=== PATIENT | female | born 1965 | race Caucasian/White ===

== ENCOUNTER 2017-05-14 19:08 | Inpatient (IN) | payer MEDICAID ==
[~2017-05-14] VITALS: Ht 172.7 cm; Wt 67.6 kg
[~2017-05-14 19:08] MED LIST: ACYC200C PO; LURA40 PO; OXCA300T PO; TOLT2CAP27 PO
[2017-05-14] MEDS ORDERED: CARB100 PO (19:25)
[2017-05-14] MEDS ORDERED: OLAN2.5T3 PO (19:25)
[2017-05-14] MEDS ORDERED: VENL25TA47 PO (19:25)
[2017-05-14] MEDS ORDERED: ACYC200C PO (19:25)
[2017-05-14 19:57] LABS: BASOPHILS # (AUTO) 0.01 K/uL (0.00-0.20); BASOPHILS % (AUTO) 0.2 % (0.0-2.0); EOSINOPHILS # (AUTO) 0.11 K/uL (0.00-0.70); EOSINOPHILS % (AUTO) 1.45 % (1.0-6.0); HEMATOCRIT 42.6 % (36-46); HEMOGLOBIN 14.3 g/dL (12.0-16.0); LYMPHOCYTES # (AUTO) 1.6 K/uL (1.0-4.8); LYMPHOCYTES % (AUTO) 20.9 % (22.0-44.0); MEAN CORPUSCULAR HEMOGLOBIN 30.8 pg (26.0-34.0); MEAN CORPUSCULAR HGB CONC 33.5 G/dL (31.0-37.0); MEAN CORPUSCULAR VOLUME 92 fL (80-100); MONOCYTES # (AUTO) 0.6 K/uL (0.1-1.0); MONOCYTES % (AUTO) 7.8 % (2.0-9.0); NEUTROPHILS # (AUTO) 5.4 K/uL (1.8-7.7); NEUTROPHILS % (AUTO) 69.7 % (40.0-70.0); PLATELET COUNT (AUTO) 296 K/uL (150-450); RED BLOOD CELL COUNT(AUTO) 4.64 MIL/uL (4.00-5.20); RED CELL DISTRIBUTION WIDTH 13.7 % (11.5-14.5); WHITE BLOOD COUNT (AUTO) 7.7 K/uL (4.5-11.0)
[2017-05-14] MEDS ORDERED: LORazepam 2 MG TABLET PO ONE (20:00)
[2017-05-14 20:09] LABS: ANION GAP 6 mmol/L (8-16); CARBON DIOXIDE 31 mmol/L (22-29); CHLORIDE 103 mmol/L (98-107); CREATININE 1.02 mg/dL (0.60-1.30); GLOMERULAR FILTR. RATE CALC 58 mL/min (>60); POTASSIUM 3.4 mmol/L (3.5-5.1); SODIUM SERUM 140 mmol/L (136-145); UREA NITROGEN, BLOOD 10 mg/dL (7-18)
[2017-05-14 20:14] LABS: ALANINE AMINOTRANSFERASE 44 U/L (12-78); ALBUMIN 3.7 g/dL (3.4-5.0); ASPARTATE AMINOTRANSFERASE 25 U/L (15-37); BILIRUBIN,TOTAL 0.3 mg/dL (0.1-1.0); TOTAL PROTEIN, SERUM 6.1 g/dL (6.4-8.2)
[2017-05-14] MEDS ORDERED: ZOLPIDEM TARTRATE 10 MG TABLET PO PRN (20:30)
[2017-05-14 21:00] LABS: CHOL/HDL RATIO 1.8 (3.9-5.7); THYROID STIMULATING HORMONE 1.61 uIU/mL (0.36-3.74)
[2017-05-14 22:49] VITALS: BP 158/98
[2017-05-15] MEDS: HALOPERIDOL 5 MG TABLET PO PRN (09:08)
[2017-05-15] MEDS: NICOTINE 7 MG/24 HOUR PATCH TD SCH (09:08)
[2017-05-15 09:24] VITALS: BP 119/74
[2017-05-15] MEDS: OXcarbazepine 300 MG TABLET PO SCH (17:58)
[2017-05-15 20:51] VITALS: BP 125/80
[2017-05-15] MEDS: OLANZapine 7.5 MG TABLET PO SCH (21:31)
[2017-05-16 05:43] VITALS: BP 125/69
[2017-05-16 09:00] VITALS: BP 132/88
[2017-05-16] MEDS: OXcarbazepine 300 MG TABLET PO SCH ×2 (09:35→17:46)
[2017-05-16] MEDS: NICOTINE 7 MG/24 HOUR PATCH TD SCH (09:35)
[2017-05-16] MEDS: LORazepam 2 MG TABLET PO PRN (09:48)
[2017-05-16] MEDS ORDERED: POTASSIUM CHLORIDE 10% 40 MEQ/30 ML LIQUID UDCUP PO ONE (16:15)
[2017-05-16 17:12] VITALS: BP 133/84
[2017-05-16] MEDS: OLANZapine 7.5 MG TABLET PO SCH (21:07)
[2017-05-17] MEDS: OXcarbazepine 300 MG TABLET PO SCH ×2 (09:42→17:05)
[2017-05-17] MEDS: NICOTINE 7 MG/24 HOUR PATCH TD SCH (09:44)
[2017-05-17 09:53] VITALS: BP 108/56
[2017-05-17] MEDS: HALOPERIDOL 5 MG TABLET PO PRN (12:45)
[2017-05-17 16:15] VITALS: BP 113/71
[2017-05-17] MEDS: OLANZapine 7.5 MG TABLET PO SCH (20:18)
[2017-05-18] MEDS: NICOTINE 7 MG/24 HOUR PATCH TD SCH (09:00)
[2017-05-18 09:11] VITALS: BP 110/78
[2017-05-18] MEDS: OXcarbazepine 300 MG TABLET PO SCH ×2 (10:03→17:03)
[2017-05-18 16:47] VITALS: BP 130/63
[2017-05-18] MEDS: LORazepam 2 MG TABLET PO PRN (19:03)
[2017-05-18] MEDS: OLANZapine 7.5 MG TABLET PO SCH (20:24)
[2017-05-19] MEDS: NICOTINE 7 MG/24 HOUR PATCH TD SCH (09:00)
[2017-05-19] MEDS: OXcarbazepine 300 MG TABLET PO SCH (09:05)
[2017-05-19 09:30] VITALS: BP 116/61
== END 2017-05-19 13:24 | disposition home or self-care (01) | DRG 753 ==
LOC: EMS 19:10 → 3EI 21:56
PROVIDERS: ADMIT Psychiatry & Neurology Psychiatry; ATTEND Psychiatry & Neurology Psychiatry
DX: F31.9 Bipolar disorder, unspecified (principal); E78.5 Hyperlipidemia, unspecified; E87.6 Hypokalemia; F41.9 Anxiety disorder, unspecified; F99 Mental disorder, not otherwise specified; R32 Unspecified urinary incontinence; Z98.51 Tubal ligation status
CPT/HCPCS: 84132; 84443; 99285; G0480

== ENCOUNTER 2017-07-22 18:07 | Emergency (ER) | payer MEDICAID ==
[~2017-07-22] VITALS: Ht 175.3 cm; Wt 50.0 kg
[~2017-07-22 18:07] MED LIST changes: -ACYC200C PO; -LURA40 PO; +OLAN2.5T3 PO; -TOLT2CAP27 PO
[2017-07-22 18:40] VITALS: BP 199/120
== END 2017-07-22 19:00 | disposition left against medical advice (07) ==
LOC: EMS 18:09
DX: F91.1 Conduct disorder, childhood-onset type (principal); F31.9 Bipolar disorder, unspecified; F17.210 Nicotine dependence, cigarettes, uncomplicated; Z53.21 Procedure and treatment not carried out due to patient leaving prior to being seen by health care provider

== ENCOUNTER 2020-02-27 13:54 | Inpatient (IN) | payer MEDICAID ==
[~2020-02-27] VITALS: Ht 175.3 cm; Wt 75.0 kg
[~2020-02-27 13:54] MED LIST changes: -OXCA300T PO; +OXCA300T57 PO
[2020-02-27 14:49] LABS: BASOPHILS % (AUTO) 0.2 % (0.0-2.0); EOSINOPHILS % (AUTO) 1.2 % (1.0-6.0); HEMATOCRIT 42.2 % (36-46); HEMOGLOBIN 14.3 g/dL (12.0-16.0); LYMPHOCYTES # (AUTO) 1.6 K/uL (1.0-4.8); LYMPHOCYTES % (AUTO) 19.6 % (22.0-44.0); MEAN CORPUSCULAR HGB CONC 33.9 G/dL (31.0-37.0); MEAN CORPUSCULAR VOLUME 89 fL (80-100); MONOCYTES # (AUTO) 0.7 K/uL (0.1-1.0); NEUTROPHILS # (AUTO) 5.9 K/uL (1.8-7.7); PLATELET COUNT (AUTO) 290 K/uL (150-450); RED BLOOD CELL COUNT(AUTO) 4.76 MIL/uL (4.00-5.20); RED CELL DISTRIBUTION WIDTH 13.3 % (11.5-14.5)
[2020-02-27 14:59] LABS: ANION GAP 5 mmol/L (8-16); CALCIUM, TOTAL 8.8 mg/dL (8.8-10.5); CARBON DIOXIDE 31 mmol/L (22-29); CHLORIDE 102 mmol/L (98-107); CREATININE 0.91 mg/dL (0.60-1.30); GLOMERULAR FILTR. RATE CALC > 60 mL/min (>60); GLUCOSE,RANDOM 130 mg/dL (70-110); POTASSIUM 3.3 mmol/L (3.5-5.1); SODIUM SERUM 138 mmol/L (136-145); UREA NITROGEN, BLOOD 7 mg/dL (7-18)
[2020-02-27 15:05] LABS: AMPHET/METH SCREEN,URINE POSITIVE (NEGATIVE); BARBITURATE SCREEN, URINE NEGATIVE (NEGATIVE); BENZODIAZEPINES SCREEN,URINE NEGATIVE (NEGATIVE); CANNABINOID SCREEN,URINE NEGATIVE (NEGATIVE); COCAINE SCREEN,URINE NEGATIVE (NEGATIVE); METHADONE SCREEN, URINE NEGATIVE (NEGATIVE); OPIATE SCREEN,URINE NEGATIVE (NEGATIVE)
[2020-02-27 15:06] LABS: ALANINE AMINOTRANSFERASE 47 U/L (12-78); ALBUMIN 3.8 g/dL (3.4-5.0); ALKALINE PHOSPHATASE 94 U/L (46-116); ASPARTATE AMINOTRANSFERASE 29 U/L (15-37); BILIRUBIN,TOTAL 0.3 mg/dL (0.1-1.0); TOTAL PROTEIN, SERUM 6.5 g/dL (6.4-8.2)
[2020-02-27 15:16] LABS: PHENCYCLIDINE SCREEN,URINE NEGATIVE (NEGATIVE)
[2020-02-27] MEDS ORDERED: HALOPERIDOL 5 MG TABLET PO PRN (16:00)
[2020-02-27] MEDS ORDERED: ZOLPIDEM TARTRATE 10 MG TABLET PO PRN (16:00)
[2020-02-27 18:47] VITALS: BP 140/99
[2020-02-27] MEDS ORDERED: POTASSIUM CHLORIDE 20 MEQ ER TABLET PO ONE (19:00)
[2020-02-28 06:26] VITALS: BP 137/94
[2020-02-28 07:20] LABS: ANION GAP 3 mmol/L (8-16); CALCIUM, TOTAL 8.8 mg/dL (8.8-10.5); CARBAMAZEPINE (TEGRETOL) 3.3 mcg/mL (4.0-12.0); CARBON DIOXIDE 32 mmol/L (22-29); CHLORIDE 104 mmol/L (98-107); CHOLESTEROL 229 mg/dL (131-200); CREATININE 0.89 mg/dL (0.60-1.30); GLOMERULAR FILTR. RATE CALC > 60 mL/min (>60); GLUCOSE,RANDOM 105 mg/dL (70-110); HDL CHOLESTEROL 113 mg/dL (40-60); LDL CHOL (CALC.) 90 mg/dL (0-130); POTASSIUM 3.4 mmol/L (3.5-5.1); SODIUM SERUM 139 mmol/L (136-145); TRIGLYCERIDES 131 mg/dL (15-150); UREA NITROGEN, BLOOD 9 mg/dL (7-18)
[2020-02-28 07:22] LABS: HEMOGLOBIN A1C 5.2 % (3.8-5.6)
[2020-02-28 08:00] VITALS: BP 144/85
[2020-02-28] MEDS: NICOTINE 21 MG/24 HOUR PATCH TD SCH (09:47)
[2020-02-28] MEDS: LORazepam 2 MG TABLET PO PRN (11:09)
[2020-02-28] MEDS: IBUPROFEN 600 MG TABLET PO PRN (11:40)
[2020-02-28] MEDS ORDERED: ACETAMINOPHEN 325 MG TABLET PO PRN (11:45)
[2020-02-28 16:00] VITALS: BP 130/80
[2020-02-29] MEDS: NICOTINE 21 MG/24 HOUR PATCH TD SCH (10:07)
[2020-02-29 10:09] VITALS: BP 145/90
[2020-02-29 16:15] VITALS: BP 149/95
[2020-02-29 16:58] VITALS: BP 146/87
[2020-02-29 20:47] VITALS: BP 151/99
[2020-02-29] MEDS: LORazepam 2 MG TABLET PO PRN (20:50)
[2020-03-01] MEDS: NICOTINE 21 MG/24 HOUR PATCH TD SCH (09:09)
[2020-03-01 09:25] VITALS: BP 125/87
[2020-03-01 16:39] VITALS: BP 116/78
[2020-03-01] MEDS: OXcarbazepine 300 MG TABLET PO SCH (16:43)
[2020-03-01] MEDS: OLANZapine 7.5 MG TABLET PO SCH (20:07)
[2020-03-02 08:00] VITALS: BP 131/99
[2020-03-02 09:00] VITALS: BP 130/80
[2020-03-02] MEDS: NICOTINE 21 MG/24 HOUR PATCH TD SCH (09:00)
[2020-03-02] MEDS: OXcarbazepine 300 MG TABLET PO SCH ×2 (09:02→16:12)
[2020-03-02] MEDS: IBUPROFEN 600 MG TABLET PO PRN (09:02)
[2020-03-02 16:37] VITALS: BP 106/75
[2020-03-02] MEDS: OLANZapine 7.5 MG TABLET PO SCH (20:06)
[2020-03-02] MEDS: LORazepam 2 MG TABLET PO PRN (20:06)
[2020-03-03 08:00] VITALS: BP 114/74
[2020-03-03] MEDS: OXcarbazepine 300 MG TABLET PO SCH ×2 (08:18→16:22)
[2020-03-03] MEDS: NICOTINE 21 MG/24 HOUR PATCH TD SCH (08:55)
[2020-03-03 16:26] VITALS: BP 129/92
[2020-03-03] MEDS: LORazepam 2 MG TABLET PO PRN (18:23)
[2020-03-03] MEDS: OLANZapine 7.5 MG TABLET PO SCH (20:05)
[2020-03-04] MEDS: OXcarbazepine 300 MG TABLET PO SCH (09:04)
[2020-03-04] MEDS: NICOTINE 21 MG/24 HOUR PATCH TD SCH (09:07)
[2020-03-04 09:14] VITALS: BP 142/70
[2020-03-04] MEDS: LORazepam 2 MG TABLET PO PRN (10:45)
[2020-03-04] MEDS ORDERED: OLAN7.5T2 PO (11:59)
[2020-03-04] MEDS ORDERED: OXCA150T27 PO (11:59)
[2020-03-04] MEDS ORDERED: OLAN5TAB2 PO (12:21)
== END 2020-03-04 15:15 | disposition home or self-care (01) | DRG 885 ==
LOC: EMS 14:00 → 3EI 15:53
PROVIDERS: ADMIT Psychiatry & Neurology Psychiatry; ATTEND Psychiatry & Neurology Psychiatry
DX: F31.9 Bipolar disorder, unspecified (principal); F10.10 Alcohol abuse, uncomplicated; I10 Essential (primary) hypertension; E87.6 Hypokalemia; Z88.8 Allergy status to other drugs, medicaments and biological substances
CPT/HCPCS: 80074; 83036; G0480

== ENCOUNTER 2020-03-30 07:03 | Emergency (ER) | payer MEDICAID ==
[~2020-03-30] VITALS: Ht 175.3 cm; Wt 70.5 kg
[~2020-03-30 07:03] MED LIST changes: -OLAN2.5T3 PO; +OLAN5TAB2 PO; +OXCA150T27 PO; -OXCA300T57 PO
[2020-03-30 08:09] LABS: BASOPHILS % (AUTO) 0.3 % (0.0-2.0); EOSINOPHILS % (AUTO) 0.7 % (1.0-6.0); HEMATOCRIT 38.9 % (36-46); HEMOGLOBIN 13.6 g/dL (12.0-16.0); LYMPHOCYTES % (AUTO) 10.7 % (22.0-44.0); MEAN CORPUSCULAR HEMOGLOBIN 30.5 pg (26.0-34.0); MEAN CORPUSCULAR VOLUME 87 fL (80-100); MONOCYTES # (AUTO) 0.8 K/uL (0.1-1.0); MONOCYTES % (AUTO) 8.9 % (2.0-9.0); NEUTROPHILS # (AUTO) 7.3 K/uL (1.8-7.7); NEUTROPHILS % (AUTO) 79.4 % (40.0-70.0); PLATELET COUNT (AUTO) 230 K/uL (150-450); RED BLOOD CELL COUNT(AUTO) 4.46 MIL/uL (4.00-5.20); RED CELL DISTRIBUTION WIDTH 13.1 % (11.5-14.5)
[2020-03-30 08:17] LABS: ANION GAP 7 mmol/L (8-16); CALCIUM, TOTAL 9.3 mg/dL (8.8-10.5); CARBON DIOXIDE 29 mmol/L (22-29); CHLORIDE 103 mmol/L (98-107); GLOMERULAR FILTR. RATE CALC 58 mL/min (>60); GLUCOSE,RANDOM 115 mg/dL (70-110); POTASSIUM 3.1 mmol/L (3.5-5.1); SODIUM SERUM 139 mmol/L (136-145); UREA NITROGEN, BLOOD 10 mg/dL (7-18)
[2020-03-30 08:23] LABS: ALANINE AMINOTRANSFERASE 51 U/L (12-78); ALBUMIN 3.7 g/dL (3.4-5.0); ALKALINE PHOSPHATASE 70 U/L (46-116); ASPARTATE AMINOTRANSFERASE 35 U/L (15-37); BILIRUBIN,TOTAL 0.5 mg/dL (0.1-1.0); TOTAL PROTEIN, SERUM 6.3 g/dL (6.4-8.2)
[2020-03-30] MEDS ORDERED: ACETAMINOPHEN 325 MG TABLET PO ONE (08:45)
[2020-03-30 09:30] VITALS: BP 136/82
== END 2020-03-30 10:25 | disposition home or self-care (01) ==
LOC: EMS 07:04
DX: F31.9 Bipolar disorder, unspecified (principal); Z88.8 Allergy status to other drugs, medicaments and biological substances
CPT/HCPCS: 36415; 80053; 85025; 99284; G0480